=== PATIENT | female | born 1970 | race African-American/Black ===

== ENCOUNTER 2016-11-03 11:22 | Emergency (ER) | payer SELFPAY ==
[2016-11-03] MEDS ORDERED: IPRATROPIUM/ALBUTEROL 0.5-2.5 MG/3 ML AMPUL NEB ONE (11:47)
--- NOTE | 2016-11-03 11:47 | ER Document Report ---
ED Medical Screen (RME) - General Stated Complaint: COUGH Mode of Arrival: Ambulatory Information source: Patient Notes: Patient reports cough for the past 5 days with a fever as high as 101. Patient does report a previous history of pleurisy. hx: Frequent UTIs, currently on Cipro I have greeted and performed a rapid initial assessment of this patient. A comprehensive ED assessment and evaluation of the patient, analysis of test results and completion of the medical decision making process will be conducted by additional ED providers. TRAVEL OUTSIDE OF THE [place] IN LAST 30 DAYS: No - Related Data Allergies/Adverse Reactions: amoxicillin [Amoxicillin] Allergy (Verified 06/21/13 15:23) Past Medical History - Past Medical History Cardiac Medical History: Reports: Hx Hypercholesterolemia Pulmonary Medical History: Reports: Hx Pneumonia Past Surgical History: Reports: Hx Hysterectomy - Immunizations Hx Diphtheria, Pertussis, Tetanus Vaccination: Yes Physical Exam - Respiratory Respiratory status: No respiratory distress Breath sounds: Nonproductive cough, Rhonchi
--- NOTE | 2016-11-03 14:05 | ER Document Report ---
ED General - General Chief Complaint: Cough Stated Complaint: COUGH Mode of Arrival: Ambulatory Notes: 38-year-old female presents with complaints of sore throat of 2 week duration that improved for a few days and then went to her lungs. Patient notes productive cough with thick sputum as well as blood-tinged and chest wall pain. Patient admits to shortness of breath TRAVEL OUTSIDE OF THE [place] IN LAST 30 DAYS: No - HPI Onset: Other Onset/Duration: Persistent Quality of pain: Achy Severity: Mild Pain Level: 1 Associated symptoms: Body/muscle aches, Productive cough, Shortness of breath, Sore throat Exacerbated by: Coughing Relieved by: Denies Similar symptoms previously: No Recently seen / treated by doctor: No - Related Data Allergies/Adverse Reactions: amoxicillin [Amoxicillin] Allergy (Verified 11/03/16 11:47) Past Medical History - General Information source: Patient - Social History Smoking Status: Never Smoker Cigarette use (# per day): No Chew tobacco use (# tins/day): No Smoking Education Provided: No Frequency of alcohol use: None Drug Abuse: None Family History: Reviewed & Not Pertinent, DM Patient has suicidal ideation: No Patient has homicidal ideation: No - Past Medical History Cardiac Medical History: Reports: Hx Hypercholesterolemia Pulmonary Medical History: Reports: Hx Pneumonia Renal/ Medical History: Denies: Hx Peritoneal Dialysis Past Surgical History: Reports: Hx Hysterectomy - Immunizations Hx Diphtheria, Pertussis, Tetanus Vaccination: Yes Hx Pneumococcal Vaccination: 09/29/11 Review of Systems - Review of Systems Notes: REVIEW OF SYSTEMS: CONSTITUTIONAL : Admits fevers recent illness EENT: Admits her throat CARDIOVASCULAR: Admits to chest wall pain RESPIRATORY: adMiss productive cough GASTROINTESTINAL: Denies abdominal pain or distention. Denies nausea, vomiting , or diarrhea. Denies blood in vomitus, stools, or per rectum. Denies black, tarry stools. Denies constipation. GENITOURINARY: Denies difficulty urinating, painful urination, burning, frequency, blood in urine, or discharge. FEMALE GENITOURINARY: Denies vaginal bleeding, heavy or abnormal periods, irregular periods. Denies vaginal discharge or odor. MUSCULOSKELETAL: Denies back or neck pain or stiffness. Denies joint pain or swelling. SKIN: Denies rash, lesions or sores. HEMATOLOGIC : Denies easy bruising or bleeding. LYMPHATIC: Denies swollen, enlarged glands. NEUROLOGICAL: Denies confusion or altered mental status. Denies passing out or loss of consciousness. Denies dizziness or lightheadedness. Denies headache. Denies weakness or paralysis or loss of use of either side. Denies problems with gait or speech. Denies sensory loss, numbness, or tingling. Denies seizures. PSYCHIATRIC: Denies anxiety or stress. Denies depression, suicidal ideation, or homicidal ideation. ALL OTHER SYSTEMS REVIEWED AND NEGATIVE. Dictation was performed using [employer] voice recognition software PHYSICAL EXAMINATION: GENERAL: Well-appearing, well-nourished and in no acute distress. HEAD: Atraumatic, normocephalic. EYES: Pupils equal round and reactive to light, extraocular movements intact, conjunctiva are normal. ENT: Nares patent, oropharynx clear without exudates. Moist mucous membranes. NECK: Normal range of motion, supple without lymphadenopathy LUNGS: Breath sounds clear to auscultation bilaterally and equal. No wheezes rales or rhonchi. HEART: Regular rate and rhythm without murmurs ABDOMEN: Soft, nontender, nondistended abdomen. No guarding, no rebound. No masses appreciated. Female : deferred Musculoskeletal: Normal range of motion, no pitting or edema. No cyanosis. NEUROLOGICAL: Cranial nerves grossly intact. Normal speech, normal gait. Normal sensory, motor exams PSYCH: Normal mood, normal affect. SKIN: Warm, Dry, normal turgor, no rashes or lesions noted. Physical Exam - Vital signs Vitals: Temp Pulse Resp BP Pulse Ox 99.4 F 103 H 20 121/85 98 11/03/16 11:48 11/03/16 11:48 11/03/16 11:48 11/03/16 11:48 11/03/16 11:48 Course - Re-evaluation Re-evalutation: 11/03/16 14:06 Given patient's history of productive cough of 2 week duration I do believe antibiotics is appropriate this point, patient will be given steroids and inhaler antibiotics has been instructed on close return precautions patient's happy with this plan After performing a Medical Screening Examination, I estimate there is LOW risk for ACUTE CORONARY SYNDROME, RESPIRATORY FAILURE, SEPSIS OR MENINGITIS, thus I consider the discharge disposition reasonable. The patient and I have discussed the diagnosis and risks, and we agree with discharging home with close follow- up. We also discussed returning to the Emergency Department immediately if new or worsening symptoms occur. We have discussed the symptoms which are most concerning (e.g., changing or worsening pain, trouble swallowing or breathing, neck stiffness, fever) that necessitate immediate return. - Vital Signs Vital signs: Temp Pulse Resp BP Pulse Ox 99.4 F 103 H 18 121/85 98 11/03/16 11:48 11/03/16 11:48 11/03/16 12:42 11/03/16 11:48 11/03/16 11:48 - Diagnostic Test Radiology reviewed: Image reviewed, Reports reviewed - No acute abnormality Discharge - Discharge Clinical Impression: Sore throat, Productive cough Condition: Stable Disposition: HOME, SELF-CARE Instructions: Bronchitis With Bronchospasm (Wheezing) ([facility]) Additional Instructions: You have been given follow up instructions including low cost follow up with one of the local primary care offices. Follow up with them tomorrow for further care and reevaluation. Return immediately if symptoms worsen Prescriptions: Hydrocodone Bit/Homatropine [Hycodan Syrup 5-1.5 mg/5 ml Ud Cup] 5 ml PO Q4HP PRN #120 ml PRN Reason: Albuterol Sulfate [Proair HFA Inhalation Aerosol 8.5 gm MDI] 2 puff IH Q4H PRN # 1 mdi PRN Reason: Azithromycin 250 mg PO ASDIR PRN #6 tablet PRN Reason: Prednisone [Deltasone 20 mg Tablet] 3 tab PO DAILY 5 Days
[2016-11-03 14:07] VITALS: BP 114/61
== END 2016-11-03 14:13 | disposition home or self-care (01) ==
LOC: ER 11:22
DX: J02.9 Acute pharyngitis, unspecified (principal); R05 Cough; M79.1 Myalgia; R06.02 Shortness of breath; E78.00 Pure hypercholesterolemia, unspecified; Z88.0 Allergy status to penicillin; Z90.710 Acquired absence of both cervix and uterus
CPT/HCPCS: 94640; 99283; 71020; J7620

== ENCOUNTER 2017-12-20 13:02 | Emergency (ER) | payer MEDICAID ==
--- NOTE | 2017-12-20 13:38 | ER Document Report ---
ED Medical Screen (RME) - General Mode of Arrival: Ambulatory Information source: Patient TRAVEL OUTSIDE OF THE [place] IN LAST 30 DAYS: No - HPI Patient complains to provider of: Abdominal and bilateral flank pain Onset: Yesterday Associated Symptoms: Other - see notes above <KAREN STEPHEN - Last Filed: 12/20/17 13:50> <FREDERICKGUMERASHIDA - Last Filed: 12/20/17 18:08> - General Chief Complaint: Flank Pain Stated Complaint: LOW BACK PAIN, ABDOMINAL PAIN Time Seen by Provider: 12/20/17 13:31 Notes: 47-year-old female with history of frequent urinary tract infections, pleurisy, and hyperlipidemia presents to the ED complaining of severe abdominal and bilateral flank pain that is exacerbated with deep breathing and urination which started yesterday. Patient reports that she took Bactrim for a possible UTI, but has not helped. Patient describes the pain as sharp and constant. Patient additionally reports of a fever (101.9F). reports that he was recently diagnosed with H. pylori stomach ulcer and is concerned that the patient might have it as well. (KAREN STEPHEN) - Related Data Allergies/Adverse Reactions: amoxicillin [Amoxicillin] Allergy (Verified 12/20/17 13:07) Past Medical History - General Information source: Patient - Past Medical History Cardiac Medical History: Reports: Hx Hypercholesterolemia Pulmonary Medical History: Reports: Hx Pneumonia Renal/ Medical History: Reports: Other - Frequent UTIs. Denies: Hx Peritoneal Dialysis Past Surgical History: Reports: Hx Hysterectomy - Immunizations Hx Diphtheria, Pertussis, Tetanus Vaccination: Yes <KAREN STEPHEN - Last Filed: 12/20/17 13:50> Review of Systems - Review of Systems Constitutional: See HPI, Fever - 101.9F EENT: No symptoms reported Cardiovascular: No symptoms reported Respiratory: No symptoms reported Gastrointestinal: See HPI, Abdominal pain Genitourinary: See HPI, Burning, Flank pain - bilateral Female Genitourinary: No symptoms reported Musculoskeletal: No symptoms reported Skin: No symptoms reported Hematologic/Lymphatic: No symptoms reported Neurological/Psychological: No symptoms reported -: Yes All other systems reviewed and negative <KAREN STEPHEN - Last Filed: 12/20/17 13:50> Physical Exam - General General appearance: Alert - Respiratory Respiratory status: Other - Shallow respirations due to pain Breath sounds: Normal - Cardiovascular Rhythm: Regular Heart sounds: Normal auscultation - Back Back: CVA tenderness - bilaterally; Right greater than left - Skin Skin Temperature: Warm Skin Moisture: Dry Skin Color: Normal Skin irregularity: negative: Rash - No rashes noted to the back. <KAREN STEPHEN - Last Filed: 12/20/17 13:50> - Vital signs Vitals: Pulse Resp BP Pulse Ox 74 16 124/90 H 97 12/20/17 13:13 12/20/17 13:13 12/20/17 13:13 12/20/17 13:13 Course - Laboratory Result Diagrams: 12/20/17 14:00 12/20/17 14:00 <RASHIDA ZAVALA - Last Filed: 12/20/17 18:08> - Vital Signs Vital signs: Temp Pulse Resp BP Pulse Ox 74 16 124/90 H 97 12/20/17 13:13 12/20/17 13:13 12/20/17 13:13 12/20/17 13:13 - Laboratory Laboratory results interpreted by me: 12/20/17 12/20/17 12/20/17 14:00 14:00 14:00 RDW 14.4 H D-Dimer Glucose 115 H Urine Blood SMALL H 12/20/17 14:00 RDW D-Dimer 0.58 H Glucose Urine Blood Scribe Documentation - Scribe Written by Scribe:: Patti Foster, 12/20/2017 1354 acting as scribe for :: Amanda <KAREN STEPHEN - Last Filed: 12/20/17 13:50>
[2017-12-20] MEDS ORDERED: KETOROLAC TROMETHAMINE 60 MG/2 ML SDV IM ONE (13:39)
[2017-12-20] MEDS ORDERED: ONDANSETRON 4 MG TAB.RAPDIS PO ONE (13:39)
--- NOTE | 2017-12-20 14:38 | RADIOLOGY REPORT (SQ) ---
EXAM DESCRIPTION: CT LTD RENAL STONE PROTOCOL ON COMPLETED DATE/TIME: 12/20/2017 2:23 pm REASON FOR STUDY: right flank pain, dysuria COMPARISON: None. TECHNIQUE: CT scan of the abdomen and pelvis performed without intravenous or oral contrast. Images reviewed with lung, soft tissue, and bone windows. Reconstructed coronal and sagittal MPR images revi ewed. All images stored on PACS. All CT scanners at this facility use dose modulation, iterative reconstruction, and/or weight based d osing when appropriate to reduce radiation dose to as low as reasonably achievable (ALARA). [facility]: Dose Right [facility]: CareDose [facility]: Dose Right [facility]: Teradose 4D [facility]: Smart Aviacomm RADIATION DOSE: CT Rad equipment meets quality standard of care and radiation dose reduction techniq ues were employed. CTDIvol: 9.9 mGy. DLP: 559 mGy-cm.mGy. LIMITATIONS: None. FINDINGS: LOWER CHEST: Right basilar airspace disease atelectasis versus pneumonia NON-CONTRASTED LIVER, SPLEEN, ADRENALS: Evaluation limited by lack of IV contrast. No identified sign ificant masses. Low attenuation throughout the liver from fatty infiltration. PANCREAS: No masses. No peripancreatic inflammatory changes. GALLBLADDER: No identified stones by CT criteria. No inflammatory changes to suggest cholecystitis. RIGHT KIDNEY AND URETER: No suspicious masses. Assessment limited by lack of IV contrast. No signif icant calcifications. No hydronephrosis or hydroureter. LEFT KIDNEY AND URETER: No suspicious masses. Assessment limited by lack of IV contrast. No signifi cant calcifications. No hydronephrosis or hydroureter. AORTA AND RETROPERITONEUM: No aneurysm. No retroperitoneal masses or adenopathy. BOWEL AND PERITONEAL CAVITY: No obvious masses or inflammatory changes. No free fluid. APPENDIX: Normal. PELVIS, BLADDER, AND ABDOMINAL WALL:No abnormal masses. No free fluid. Bladder normal. Post hysterec shade. Unremarkable left ovary, 2.9 x 1.7 cm in size on axial image 75. On the right side, a [address] is present adjacent to the right proximal common iliac artery and vein likely an ovarian cyst. Th is is best shown on axial image 72 and coronal image 47 BONES: No significant findings. OTHER: No other significant finding. IMPRESSION: No CT evidence of obstructive urinary calculi, hydronephrosis, or hydroureter. Incidental finding of right basilar airspace disease COMMENT: Quality ID # [id number]: Final reports with documentation of one or more dose reduction techniques (e.g., Automated exposure control, adjustment of the mA and/or kV according to patient size, use of iterative reconstruction technique) TECHNICAL DOCUMENTATION: JOB ID: [id number] [employer]- All Rights Reserved Reading location - IP/workstation name: [email or web address]
[2017-12-20 14:58] LABS: ABSOLUTE EOSINOPHILS # (AUTO) 0.1 10^3/uL (0.0-0.6); ABSOLUTE LYMPHOCYTES (AUTO) 1.8 10^3/uL (0.5-4.7); ABSOLUTE MONOCYTES (AUTO) 0.8 10^3/uL (0.1-1.4); ABSOLUTE NEUT (AUTO) 4.6 10^3/uL (1.7-8.2); BASOPHILS % (AUTO) 0.3 % (0-2); EOSINOPHILS % (AUTO) 0.8 % (0-6); HEMATOCRIT 38.3 % (36.0-47.0); HEMOGLOBIN 12.7 g/dL (12.0-15.5); LYMPHOCYTES % (AUTO) 24.8 % (13-45); MEAN CORPUSCULAR HEMOGLOBIN 31.7 pg (27.0-33.4); MEAN CORPUSCULAR HGB CONC 33.2 g/dL (32.0-36.0); MEAN CORPUSCULAR VOLUME 96 fl (80-97); MONOCYTES % (AUTO) 10.4 % (3-13); PLATELET COUNT 201 10^3/uL (150-450); RED CELL DISTRIBUTION WIDTH 14.4 % (11.5-14.0); SEGMENTED NEUTROPHILS % (AUTO) 63.7 % (42-78); TOTAL CELLS COUNTED % (AUTO) 100 %; WHITE BLOOD COUNT 7.2 10^3/uL (4.0-10.5)
[2017-12-20] MEDS ORDERED: FENTANYL CITRATE INJ/PF 100 MCG/2 ML AMPUL IM ONE (14:59)
[2017-12-20] MEDS ORDERED: ALBUTEROL SULFATE 0.083% NEB 2.5 MG/3 ML AMPUL NEB ONE (15:00)
--- NOTE | 2017-12-20 15:01 | ER Document Report ---
ED General - General Chief Complaint: Flank Pain Stated Complaint: LOW BACK PAIN, ABDOMINAL PAIN Time Seen by Provider: 12/20/17 13:31 Mode of Arrival: Ambulatory Notes: 47-year-old -[place] female to the emergency department chief complaint of right flank pain/right lung pain. States that having some shortness of breath. Feels like she is going to pass out. Was diagnosed with pleurisy recently. Denies any fever, chills, sweats. TRAVEL OUTSIDE OF THE [place] IN LAST 30 DAYS: No - HPI Onset: This morning Onset/Duration: Sudden Pain Level: 2 Associated symptoms: Nausea, Shortness of breath - Related Data Allergies/Adverse Reactions: amoxicillin [Amoxicillin] Allergy (Verified 12/20/17 13:07) Past Medical History - General Information source: Patient - Social History Smoking Status: Never Smoker Family History: Reviewed & Not Pertinent, DM Patient has suicidal ideation: No Patient has homicidal ideation: No - Past Medical History Cardiac Medical History: Reports: Hx Hypercholesterolemia Pulmonary Medical History: Reports: Hx Pneumonia Renal/ Medical History: Reports: Other - Frequent UTIs. Denies: Hx Peritoneal Dialysis Past Surgical History: Reports: Hx Hysterectomy - Immunizations Hx Diphtheria, Pertussis, Tetanus Vaccination: Yes Hx Pneumococcal Vaccination: 09/29/11 Review of Systems - Review of Systems Constitutional: No symptoms reported EENT: No symptoms reported Cardiovascular: Chest pain. denies: Palpitations, Heart racing Respiratory: Hurts to breathe, Short of breath. denies: Wheezing Gastrointestinal: No symptoms reported, Abdominal pain, Nausea. denies: Diarrhea, Vomiting Genitourinary: No symptoms reported, Dysuria Female Genitourinary: No symptoms reported Musculoskeletal: No symptoms reported Skin: No symptoms reported Hematologic/Lymphatic: No symptoms reported Neurological/Psychological: No symptoms reported Physical Exam - Vital signs Vitals: Pulse Resp BP Pulse Ox 74 16 124/90 H 97 12/20/17 13:13 12/20/17 13:13 12/20/17 13:13 12/20/17 13:13 Interpretation: Normal - General General appearance: Appears well, Alert - HEENT Head: Normocephalic, Atraumatic Eyes: Normal Pupils: PERRL - Respiratory Respiratory status: No respiratory distress Chest status: Nontender Breath sounds: Normal Chest palpation: Normal - Cardiovascular Rhythm: Regular Heart sounds: Normal auscultation Murmur: No - Abdominal Inspection: Normal Distension: No distension Bowel sounds: Normal Tenderness: Nontender Organomegaly: No organomegaly - Back Back: Normal, Nontender - Extremities General upper extremity: Normal inspection, Nontender, Normal color, Normal ROM , Normal temperature General lower extremity: Normal inspection, Nontender, Normal color, Normal ROM , Normal temperature, Normal weight bearing. No: Leesa's sign - Neurological Neuro grossly intact: Yes Cognition: Normal Orientation: AAOx4 [place] Coma Scale Eye Opening: Spontaneous [place] Coma Scale Verbal: Oriented [place] Coma Scale Motor: Obeys Commands [place] Coma Scale Total: 15 Speech: Normal Motor strength normal: LUE, RUE, LLE, RLE Sensory: Normal - Psychological Associated symptoms: Normal affect, Normal mood - Skin Skin Temperature: Warm Skin Moisture: Dry Skin Color: Normal Course - Re-evaluation Re-evalutation: 12/20/17 20:42 Chest x-ray, CTA of the chest unremarkable. Labs unremarkable except for mildly elevated d-dimer. Patient feeling much better at this time. Uncertain etiology of patient's symptoms are better at this time find nothing further. Patient has been observed in the ER for 7 hours. Comfortable discharging. - Vital Signs Vital signs: Temp Pulse Resp BP Pulse Ox 97.6 F 73 16 106/61 98 12/20/17 19:32 12/20/17 19:32 12/20/17 19:32 12/20/17 19:32 12/20/17 19:32 - Laboratory Result Diagrams: 12/20/17 14:00 12/20/17 14:00 Laboratory results interpreted by me: 12/20/17 12/20/17 12/20/17 14:00 14:00 14:00 RDW 14.4 H D-Dimer Glucose 115 H Urine Blood SMALL H 12/20/17 14:00 RDW D-Dimer 0.58 H Glucose Urine Blood - EKG Interpretation by Me EKG shows normal: Sinus rhythm, [place], Intervals, QRS Complexes, ST-T Waves Discharge - Discharge Clinical Impression: Pleurisy, Flank pain, acute Condition: Good Disposition: HOME, SELF-CARE Instructions: Abdominal Pain ([facility]), Toradol Injection ([facility]), Pain Medication Injection ([facility]) Additional Instructions: In the event that symptoms get worse over the next 12-24 hours please return immediately for repeat evaluation. You may take anti-inflammatories of the prescription pain medication as given. Please follow-up with your regular doctor. Prescriptions: Ibuprofen [Motrin 800 mg Tablet] 800 mg PO Q8H PRN #30 tab PRN Reason:
[2017-12-20 15:02] LABS: APPEARANCE,URINE CLEAR; BILIRUBIN,URINE NEGATIVE (NEGATIVE); COLOR,URINE YELLOW; GLUCOSE, URINE NEGATIVE (NEGATIVE); KETONES,URINE NEGATIVE (NEGATIVE); LEUKOCYTE ESTERASE,URINE NEGATIVE (NEGATIVE); NITRITE,URINE NEGATIVE (NEGATIVE); PROTEIN,URINE NEGATIVE (NEGATIVE); URINE SPECIFIC GRAVITY 1.016; UROBILINOGEN,URINE NEGATIVE mg/dL (<2.0)
[2017-12-20 15:18] LABS: ALANINE AMINOTRANSFERASE 22 U/L (9-52); ALKALINE PHOSPHATASE 47 U/L (38-126); ANION GAP 10 (5-19); ASPARTATE AMINO TRANSFERASE 15 U/L (14-36); BILIRUBIN,DIRECT 0.1 mg/dL (0.0-0.4); BILIRUBIN,TOTAL 0.3 mg/dL (0.2-1.3); BLOOD UREA NITROGEN 12 mg/dL (7-20); CALCIUM 9.4 mg/dL (8.4-10.2); CARBON DIOXIDE 26 mmol/L (22-30); CHLORIDE 102 mmol/L (98-107); GLUCOSE 115 mg/dL (75-110); POTASSIUM 4.3 mmol/L (3.6-5.0); SODIUM 138.3 mmol/L (137-145); TOTAL PROTEIN 6.4 g/dL (6.3-8.2)
--- NOTE | 2017-12-20 16:06 | RADIOLOGY REPORT (SQ) ---
EXAM DESCRIPTION: CHEST SINGLE VIEW COMPLETED DATE/TIME: 12/20/2017 3:47 pm REASON FOR STUDY: sob,right chest pain COMPARISON: 11/03/2016 EXAM PARAMETERS: NUMBER OF VIEWS: One view. TECHNIQUE: Single frontal radiographic view of the chest acquired. RADIATION DOSE: NA LIMITATIONS: None. FINDINGS: LUNGS AND PLEURA: No new opacities, masses or pneumothorax. No pleural effusion. MEDIASTINUM AND HILAR STRUCTURES: No masses. Contour normal. HEART AND VASCULAR STRUCTURES: Heart stable in size. Normal vasculature. BONES: No acute findings. HARDWARE: None in the chest. OTHER: No other significant finding. IMPRESSION: NO ACUTE RADIOGRAPHIC FINDING IN THE CHEST. NO SIGNIFICANT CHANGE FROM PRIOR STUDY. TECHNICAL DOCUMENTATION: JOB ID: [id number] [employer]- All Rights Reserved Reading location - IP/workstation name: [email or web address]
--- NOTE | 2017-12-20 19:58 | RADIOLOGY REPORT (SQ) ---
EXAM DESCRIPTION: CTA CHEST COMPLETED DATE/TIME: 12/20/2017 7:21 pm REASON FOR STUDY: chest pain, sob, elevated ddimer COMPARISON: 07/25/2012 and 12/20/2017 TECHNIQUE: CT scan of the chest performed using helical scanning technique with dynamic intravenous contrast injection. Images reviewed with lung, soft tissue and bone windows. Reconstructed coronal and sagittal MPR images reviewed. Additional 3 dimensional post-processing performed to develop Maximal Intensity Projection images (CT P). All images stored on PACS. All CT scanners at this facility use dose modulation, iterative reconstruction, and/or weight based d osing when appropriate to reduce radiation dose to as low as reasonably achievable (ALARA). [facility]: Dose Right [facility]: CareDose [facility]: Dose Right [facility]: Teradose 4D [facility]: Kofax CONTRAST TYPE AND DOSE: contrast/concentration: Isovue 370.00 mg/ml; Total Contrast Delivered: 71.0 ml; Total Saline Delivered: 80.0 ml Contrast bolus optimized for the pulmonary arteries. Not diagnostic for the aorta. RENAL FUNCTION: BUN 12; creatinine 0.66 RADIATION DOSE: CT Rad equipment meets quality standard of care and radiation dose reduction techniq ues were employed. CTDIvol: 18.4 - 24.8 mGy. DLP: 659 mGy-cm. . LIMITATIONS: None. FINDINGS: LUNGS AND PLEURA: Scattered calcified granulomata. No focal consolidation. No pleural ef fusions. No pneumothorax. . AORTA AND GREAT VESSELS: No aneurysm. Contrast bolus not optimized for the aorta. HEART: No pericardial effusion. No significant coronary artery calcifications. PULMONARY ARTERIES: No emboli visualized in the main pulmonary arteries or the segmental branches. HILAR AND MEDIASTINAL STRUCTURES: No identified masses or abnormal nodes. HARDWARE: None in the chest. UPPER ABDOMEN: No significant findings. Limited exam. THYROID AND OTHER SOFT TISSUES: No masses. No adenopathy. BONES: No acute or significant finding. 3D MIPS: Confirm above findings. OTHER: No other significant finding. IMPRESSION: NORMAL CTA OF THE CHEST. NO PULMONARY EMBOLI. COMMENT: Quality ID # 436: Final reports with documentation of one or more dose reduction techniques (e.g., Automated exposure control, adjustment of the mA and/or kV according to patient size, use of iterative reconstruction technique) TECHNICAL DOCUMENTATION: JOB ID: [id number] [employer]- All Rights Reserved Reading location - IP/workstation name: [email or web address]
[2017-12-20] MEDS ORDERED: KETOROLAC TROMETHAMINE INJ/PF 30 MG/1 ML SDV IV ONE (20:42)
[2017-12-20] MEDS ORDERED: HYDROCODONE/ACETAMINOPHEN 5-325 MG (6 TAB/ER DISP) PO PRN (20:44)
[2017-12-20 21:22] VITALS: BP 129/72
--- NOTE | 2017-12-21 16:16 | EKG REPORT ---
SEVERITY:- NORMAL ECG - SINUS RHYTHM : Confirmed by: Tabby Velazquez 21-Dec-2017 16:16:08
== END 2017-12-20 21:10 | disposition home or self-care (01) ==
LOC: ER 13:02
DX: R09.1 Pleurisy (principal); R10.9 Unspecified abdominal pain; R07.1 Chest pain on breathing; R06.02 Shortness of breath; R11.0 Nausea; R79.1 Abnormal coagulation profile; Z88.0 Allergy status to penicillin; Z87.440 Personal history of urinary (tract) infections
CPT/HCPCS: 93005; 94640; 99285; 96372; 96374; 36415; 87086; 85025; 81025; 80053; 81001; 85379; 71045; 71275; 76380; 93010; J1885 ×2; S0119; J3010

== ENCOUNTER 2018-01-23 17:15 | Emergency (ER) | payer MEDICAID, MEDICARE ==
--- NOTE | 2018-01-23 18:47 | ER Document Report ---
ED General - General Information source: Patient TRAVEL OUTSIDE OF THE [place] IN LAST 30 DAYS: No <MORGAN MENJIVAR - Last Filed: 01/23/18 21:48> <LIZZIE KENDRICK - Last Filed: 01/23/18 22:24> - General Chief Complaint: Shortness Of Breath Stated Complaint: KNEE PAIN Time Seen by Provider: 01/23/18 18:27 Notes: 47 y.o female with a PMHx of arthritis presents to the ED with LT knee pain and SOB. Pt states that her knee has been swollen with pain for the past 4 days that extends into her calf and thigh. She states that she wrapped it yesterday to try to relieve the pain but was without any relief and reports hearing a "crunching" sound when moving her knee or baring weight. Pt also notes some SOB since yesterday. She states that she has had SOB in the past for when she had pleurisy but states that this is not similar in feeling. Pt states that she thinks she used to take blood thinners but was not sure what it was for. Pt has a PSHx of hysterectomy. She denies any recent surgeries. She denies being on any control. Pt reports taking Ibuprofen regularly. Pt denies any Hx of DM. Pt is a former smoker. She denies pollen allergies currently bothering her recently. Pt states that she usually is given Percocet when in the ED for pain in her knee. (MORGAN MENJIVAR) - Related Data Allergies/Adverse Reactions: amoxicillin [Amoxicillin] Allergy (Verified 12/20/17 13:07) Past Medical History - General Information source: Patient - Social History Smoking Status: Former Smoker Chew tobacco use (# tins/day): No Frequency of alcohol use: Occasional Drug Abuse: None Family History: Reviewed & Not Pertinent, DM Patient has suicidal ideation: No Patient has homicidal ideation: No - Past Medical History Cardiac Medical History: Reports: Hx Hypercholesterolemia Pulmonary Medical History: Reports: Hx Pneumonia Renal/ Medical History: Denies: Hx Peritoneal Dialysis Past Surgical History: Reports: Hx Hysterectomy - Immunizations Hx Diphtheria, Pertussis, Tetanus Vaccination: Yes Hx Pneumococcal Vaccination: 09/29/11 <MORGAN MENJIVAR - Last Filed: 01/23/18 21:48> Review of Systems - Review of Systems Constitutional: No symptoms reported EENT: No symptoms reported Cardiovascular: No symptoms reported Respiratory: See HPI, Short of breath Gastrointestinal: No symptoms reported Genitourinary: No symptoms reported Female Genitourinary: No symptoms reported Musculoskeletal: See HPI, Joint pain, Leg swelling Skin: No symptoms reported Hematologic/Lymphatic: No symptoms reported Neurological/Psychological: No symptoms reported -: Yes All other systems reviewed and negative <MORGAN MENJIVAR - Last Filed: 01/23/18 21:48> Physical Exam <MORGAN MENJIVAR - Last Filed: 01/23/18 21:48> <LIZZIE KENDRICK - Last Filed: 01/23/18 22:24> - Vital signs Vitals: Resp 16 01/23/18 15:31 - Notes Notes: GENERAL: Alert, interacts well. No acute distress. HEAD: Normocephalic, atraumatic. EYES: Pupils equal, round, and reactive to light. Extraocular movements intact. ENT: Oral mucosa moist, tongue midline. NECK: Full range of motion. Supple. Trachea midline. LUNGS: Clear to auscultation bilaterally, no wheezes, rales, or rhonchi. No respiratory distress. HEART: Regular rate and rhythm. No murmurs, gallops, or rubs. ABDOMEN: Soft, non-tender. Non-distended. Bowel sounds present in all 4 quadrants. No guarding, rebound, or rigidity. EXTREMITIES: Bilateral upper extremities and RT lower extremity full ROM. Diffuse LT knee tenderness to palpation. Tender to LT patella and LT posterior knee. Sensations intact throughout. radial and dorsalis pedis pulses 2/4 bilaterally. No cyanosis. Limited exam due to pain. NEUROLOGICAL: Alert and oriented x3. Normal speech. PSYCH: Normal affect, normal mood. SKIN: Warm, dry, normal turgor. No rashes or lesions noted. (MORGAN MENJIVAR) Course - Laboratory Result Diagrams: 01/23/18 18:52 01/23/18 18:52 <MORGAN MENJIVAR - Last Filed: 01/23/18 21:48> - Laboratory Result Diagrams: 01/23/18 18:52 01/23/18 18:52 - Diagnostic Test Radiology reviewed: Reports reviewed <LIZZIE KENDRICK - Last Filed: 01/23/18 22:24> - Re-evaluation Re-evalutation: 01/23/18 21:16 Patient presents with left knee pain and also pain in her left calf. Ultrasound Doppler is negative for DVT. Patient has an x-ray that is most likely consistent with tendinitis and a small joint effusion; however she will be referred to orthopedics for further evaluation. She will be placed in a knee immobilizer and given crutches. Patient will be discharged home with pain medication and muscle relaxant. She is agreeable to this plan. Return if any worsening or concerning symptoms. Lungs are clear. Vitals are stable. D- dimer is negative. Stable for discharge. (LIZZIE KENDRICK) - Vital Signs Vital signs: Temp Pulse Resp BP Pulse Ox 98.2 F 78 18 99/61 L 100 01/23/18 21:04 01/23/18 17:23 01/23/18 21:04 01/23/18 21:04 01/23/18 21:04 Procedures - Immobilization Left Knee Pre-Proc Neuro Vasc Exam: Normal Immobilizer type: Knee immobilizer Performed by: PCT Post-Proc Neuro Vasc Exam: Normal Alignment checked and good: No <LIZZIE KENDRICK - Last Filed: 01/23/18 22:24> Discharge <MORGAN MENJIVAR - Last Filed: 01/23/18 21:48> <LIZZIE KENDRICK - Last Filed: 01/23/18 22:24> - Discharge Clinical Impression: Injury of ligament of knee Qualifiers: Encounter type: initial encounter Laterality: left Qualified Code(s): S89.92XA - Unspecified injury of left lower leg, initial encounter Condition: Stable Disposition: HOME, SELF-CARE Instructions: Suspected Internal Knee Injury ([facility]), Knee Immobilizing Splint ( [facility]) Prescriptions: Cyclobenzaprine HCl [Flexeril 10 Mg Tablet] 10 mg PO TID #30 tablet Oxycodone HCl/Acetaminophen [Percocet 5-325 mg Tablet] 1 - 2 tab PO Q4H PRN #15 tablet PRN Reason: Forms: Return to Work Referrals: INGE SANTIZO MD [ACTIVE STAFF] - Follow up as needed Scribe Attestation: 01/23/18 22:24 I personally performed the services described in the documentation, reviewed and edited the documentation which was dictated to the scribe in my presence, and it accurately records my words and actions. (LIZZIE KENDRICK) Scribe Documentation - Scribe Written by Patti:: Patti Pollock [id number] 01/23/2018 acting as scribe for :: Cristiana <MORGAN MENJIVAR - Last Filed: 01/23/18 21:48>
[2018-01-23] MEDS ORDERED: OXYCODONE-ACETAMINOPHEN 5-325 MG TABLET PO ONE (18:54)
[2018-01-23 19:05] LABS: ABSOLUTE EOSINOPHILS # (AUTO) 0.1 10^3/uL (0.0-0.6); ABSOLUTE LYMPHOCYTES (AUTO) 2.3 10^3/uL (0.5-4.7); ABSOLUTE MONOCYTES (AUTO) 0.7 10^3/uL (0.1-1.4); ABSOLUTE NEUT (AUTO) 3.6 10^3/uL (1.7-8.2); BASOPHILS % (AUTO) 0.2 % (0-2); EOSINOPHILS % (AUTO) 1.3 % (0-6); HEMATOCRIT 36.6 % (36.0-47.0); HEMOGLOBIN 12.3 g/dL (12.0-15.5); LYMPHOCYTES % (AUTO) 33.7 % (13-45); MEAN CORPUSCULAR HGB CONC 33.6 g/dL (32.0-36.0); MEAN CORPUSCULAR VOLUME 95 fl (80-97); MONOCYTES % (AUTO) 10.6 % (3-13); PLATELET COUNT 202 10^3/uL (150-450); RED BLOOD COUNT 3.84 10^6/uL (3.72-5.28); RED CELL DISTRIBUTION WIDTH 13.8 % (11.5-14.0); SEGMENTED NEUTROPHILS % (AUTO) 54.2 % (42-78); TOTAL CELLS COUNTED % (AUTO) 100 %; WHITE BLOOD COUNT 6.7 10^3/uL (4.0-10.5)
[2018-01-23 19:09] LABS: INTERNATIONAL RATION (INR) 0.89; PROTHROMBIN TIME 12.5 SEC (11.4-15.4)
[2018-01-23 19:23] LABS: ALANINE AMINOTRANSFERASE 26 U/L (9-52); ALKALINE PHOSPHATASE 54 U/L (38-126); ANION GAP 13 (5-19); ASPARTATE AMINO TRANSFERASE 21 U/L (14-36); BILIRUBIN,DIRECT 0.3 mg/dL (0.0-0.4); BILIRUBIN,TOTAL 0.3 mg/dL (0.2-1.3); BLOOD UREA NITROGEN 15 mg/dL (7-20); CALCIUM 9.1 mg/dL (8.4-10.2); CARBON DIOXIDE 25 mmol/L (22-30); CHLORIDE 104 mmol/L (98-107); CREATINE KINASE 121 U/L (30-135); GLUCOSE 91 mg/dL (75-110); POTASSIUM 3.7 mmol/L (3.6-5.0); SODIUM 141.9 mmol/L (137-145); TOTAL PROTEIN 7.1 g/dL (6.3-8.2)
[2018-01-23 19:36] LABS: CREATINE KINASE MB 0.86 ng/mL (<4.55); TROPONIN I < 0.012 ng/mL
[2018-01-23] MEDS ORDERED: ONDANSETRON 4 MG TAB.RAPDIS PO ONE (19:50)
[2018-01-23] MEDS ORDERED: MORPHINE SULFATE 10 MG/ML INJ IM ONE (19:50)
--- NOTE | 2018-01-23 20:44 | RADIOLOGY REPORT (SQ) ---
EXAM DESCRIPTION: KNEE LEFT 4 VIEW COMPLETED DATE/TIME: 01/23/2018 8:27 pm REASON FOR STUDY: injury, pain COMPARISON: None. NUMBER OF VIEWS: Four views. TECHNIQUE: AP, lateral, and both oblique radiographic images acquired of the left knee. LIMITATIONS: None. FINDINGS: MINERALIZATION: Normal. BONES: No fracture identified. There is diffuse sclerotic appearance involving the distal femoral me tadiaphysis and lateral greater than medial femoral condyles. Enthesopathic change involving the sup erior inferior patella as well as the tibial tuberosity. JOINT: Small joint effusion. SOFT TISSUES: There is some increased density along the expected course of the patellar tendon. OTHER: No other significant finding. IMPRESSION: SMALL JOINT EFFUSION IDENTIFIED. NO DISCRETE FRACTURE. THERE IS INCREASED DENSITY SHANAE G THE EXPECTED COURSE OF THE PATELLAR TENDON IN THE SETTING OF ENTHESOPATHY COULD BE SECONDARY TO CHR ONIC TENDINOSIS HOWEVER ACUTE TENDON INJURY CANNOT BE EXCLUDED. CORRELATE WITH PHYSICAL EXAM AND MEC HANISM OF INJURY. DIFFUSE SCLEROSIS NOTED OF THE DISTAL FEMUR WHICH IS NONSPECIFIC AND COULD BE RELATED TO PAGET'S, A M ETABOLIC DISORDER, OR POTENTIALLY UNDERLYING MALIGNANCY. CORRELATE WITH PATIENT'S CLINICAL HISTORY, LABORATORY VALUES, AND CONSIDER FOLLOW-UP BONE SCAN. TECHNICAL DOCUMENTATION: JOB ID: [id number] [employer]- All Rights Reserved Reading location - IP/workstation name: [email or web address]
[2018-01-23 21:08] VITALS: BP 99/61
--- NOTE | 2018-01-23 21:16 | RADIOLOGY REPORT (SQ) ---
EXAM DESCRIPTION: VENOUS UNILATERAL LOWER COMPLETED DATE/TIME: 01/23/2018 8:58 pm REASON FOR STUDY: LOWER EXTREMITY PAIN LEFT COMPARISON: 07/25/2012 TECHNIQUE: Dynamic and static aguilar scale and color images acquired of the left leg venous system. Se lected spectral images acquired with additional compression and augmentation maneuvers. The contralat eral common femoral vein and saphenofemoral junction were also imaged. Images stored on PACS. LIMITATIONS: None. FINDINGS: COMMON FEMORAL: Normal phasicity, compression and augmentation. No visualized echogenic ma terial on aguilar scale. No defects on color images. FEMORAL: Normal compression and augmentation. No visualized echogenic material on aguilar scale. No defe cts on color images. POPLITEAL: Normal compression, augmentation. No visualized echogenic material on aguilar scale. No defec ts on color images. CALF VESSELS: Normal compression, augmentation. No visualized echogenic material on aguilar scale. No de fects on color images. GSV and SSV: Normal compression, augmentation. No visualized echogenic material on aguilar scale. No def ects on color images. ANY DEEP VENOUS INSUFFICIENCY: Not evaluated. ANY EVIDENCE OF POPLITEAL CYST: No. OTHER: No other significant finding. CONTRALATERAL COMMON FEMORAL VEIN AND SAPHENOFEMORAL JUNCTION: Normal phasicity, compression and augmentation. No visualized echogenic material on aguilar scale. No de fects on color images. IMPRESSION: NO EVIDENCE DVT OR SVT IN THE LEFT LEG. TECHNICAL DOCUMENTATION: JOB ID: [id number] [employer]- All Rights Reserved Reading location - IP/workstation name: [email or web address]
--- NOTE | 2018-01-24 08:22 | EKG REPORT ---
SEVERITY:- BORDERLINE ECG - SINUS RHYTHM NONSPECIFIC -T INVERSION IN V2 : Confirmed by: Scottie Street MD 24-Jan-2018 08:21:51
== END 2018-01-23 21:30 | disposition home or self-care (01) ==
LOC: ER 17:15
DX: S89.92XA Unspecified injury of left lower leg, initial encounter (principal); X58.XXXA Exposure to other specified factors, initial encounter; R06.02 Shortness of breath; M25.562 Pain in left knee; Z88.0 Allergy status to penicillin; Z87.891 Personal history of nicotine dependence; Z90.710 Acquired absence of both cervix and uterus
CPT/HCPCS: 93005; 99284; 96372; 36415; 82553; 82550; 84443; 85025; 85610; 80053; 84484; 85379; 93971; 73562; 93010; L1830; S0119; J2270

== ENCOUNTER 2019-03-29 18:40 | Emergency (ER) | payer MEDICARE, MEDICAID ==
[2019-03-29 18:54] VITALS: BP 129/74
[2019-03-29] MEDS ORDERED: ONDANSETRON HCL INJ/PF 4 MG/2 ML SDV IV ONE (19:55)
[2019-03-29] MEDS ORDERED: KETOROLAC TROMETHAMINE INJ/PF 30 MG/1 ML SDV IV ONE (19:55)
--- NOTE | 2019-03-29 19:57 | ER Document Report ---
ED Medical Screen (RME) - General Chief Complaint: Flank Pain Stated Complaint: FLANK PAIN Time Seen by Provider: 03/29/19 19:53 Primary Care Provider: XANDER HEWITT MD [Primary Care Provider] - Follow up as needed Mode of Arrival: Ambulatory Information source: Patient Notes: Patient presents complaining of left flank pain that radiates around to the left side of abdomen for the past 3 days. Patient states pain occasionally varies in intensity. Patient does report nausea with occasional dizziness. Patient denies any fever. Patient states she is currently being treated for UTI. Patient was initially placed on Cipro and then changed to Macrobid. I have greeted and performed a rapid initial assessment of this patient. A comprehensive ED assessment and evaluation of the patient, analysis of test results and completion of the medical decision making process will be conducted by additional ED providers. TRAVEL OUTSIDE OF THE [place] IN LAST 30 DAYS: No - Related Data Allergies/Adverse Reactions: amoxicillin [Amoxicillin] Allergy (Verified 03/29/19 18:41) Past Medical History - Social History Chew tobacco use (# tins/day): No Frequency of alcohol use: None Drug Abuse: None - Past Medical History Cardiac Medical History: Reports: Hx Hypercholesterolemia Pulmonary Medical History: Reports: Hx Pneumonia Renal/ Medical History: Denies: Hx Peritoneal Dialysis Past Surgical History: Reports: Hx Hysterectomy - Immunizations Hx Diphtheria, Pertussis, Tetanus Vaccination: Yes Physical Exam - Vital signs Vitals: Temp Pulse Resp BP Pulse Ox 98.6 F 68 18 129/74 H 96 03/29/19 18:52 03/29/19 18:52 03/29/19 18:52 03/29/19 18:52 03/29/19 18:52 - Back Back: CVA tenderness - Left flank Course - Vital Signs Vital signs: Temp Pulse Resp BP Pulse Ox 98.6 F 68 18 129/74 H 96 03/29/19 18:52 03/29/19 18:52 03/29/19 18:52 03/29/19 18:52 03/29/19 18:52 Doctor's Discharge - Discharge Referrals: XANDER HEWITT MD [Primary Care Provider] - Follow up as needed
[2019-03-29 20:56] LABS: ABSOLUTE BASOPHILS # (AUTO) 0.1 10^3/uL (0.0-0.2); ABSOLUTE EOSINOPHILS # (AUTO) 0.1 10^3/uL (0.0-0.6); ABSOLUTE LYMPHOCYTES (AUTO) 2.1 10^3/uL (0.5-4.7); ABSOLUTE MONOCYTES (AUTO) 0.5 10^3/uL (0.1-1.4); ABSOLUTE NEUT (AUTO) 2.9 10^3/uL (1.7-8.2); BASOPHILS % (AUTO) 2.1 % (0-2); EOSINOPHILS % (AUTO) 1.3 % (0-6); HEMATOCRIT 36.9 % (36.0-47.0); HEMOGLOBIN 12.3 g/dL (12.0-15.5); LYMPHOCYTES % (AUTO) 36.7 % (13-45); MEAN CORPUSCULAR HEMOGLOBIN 31.7 pg (27.0-33.4); MEAN CORPUSCULAR HGB CONC 33.3 g/dL (32.0-36.0); MEAN CORPUSCULAR VOLUME 95 fl (80-97); MONOCYTES % (AUTO) 8.4 % (3-13); PLATELET COUNT 211 10^3/uL (150-450); RED BLOOD COUNT 3.87 10^6/uL (3.72-5.28); RED CELL DISTRIBUTION WIDTH 14.2 % (11.5-14.0); SEGMENTED NEUTROPHILS % (AUTO) 51.5 % (42-78); TOTAL CELLS COUNTED % (AUTO) 100 %; WHITE BLOOD COUNT 5.7 10^3/uL (4.0-10.5)
--- NOTE | 2019-03-29 21:11 | RADIOLOGY REPORT (SQ) ---
EXAM DESCRIPTION: [facility]: CT ABDOMEN PELVIS WITHOUT IV CONTRAST CLINICAL HISTORY: 48 years Female; L flank pain TECHNIQUE: CT of the abdomen and pelvis without contrast. All CT scans at this facility use dose modulation, iterative reconstruction, and/or weight based dosing when appropriate to reduce radiation dose to as low as reasonably achievable. COMPARISON: CT 12/20/2017 FINDINGS: Abdomen: Liver: 5 mm hypodensity in segment 4A is unchanged, likely a small cyst. Liver is otherwise unremarkable. No ductal distention. Gallbladder:Nondistended Pancreas:Within normal limits Spleen:Within normal limits Right kidney:No hydronephrosis. No renal or ureteral calculi. Left kidney:No hydronephrosis. No renal or ureteral calculi. Adrenal glands:Within normal limits Vascular structures: Mild scattered calcific plaque in the aorta, unchanged. No aneurysm. Pelvis: Small bowel:No significant distention. Appendix:Within normal limits Colon: Several diverticula in the proximal colon. No acute pericolonic edema. No distention. No free intraperitoneal fluid or air. Bones: Degenerative facet arthropathy in the lower lumbar spine. No acute bone findings. Bladder: Unremarkable. No pelvic mass or adenopathy. Note that evaluation of the bowel and solid organs is somewhat limited due to lack of intravenous and oral contrast. IMPRESSION: 1. No acute findings 2. No renal or ureteral calculi 3. Several colonic diverticula, but no evidence for acute diverticulitis 4. Lower lumbar facet arthropathy.
[2019-03-29 21:14] LABS: ALANINE AMINOTRANSFERASE 23 U/L (9-52); ALBUMIN 4.2 g/dL (3.5-5.0); ALKALINE PHOSPHATASE 54 U/L (38-126); ANION GAP 7 (5-19); ASPARTATE AMINO TRANSFERASE 25 U/L (14-36); BILIRUBIN,DIRECT 0.3 mg/dL (0.0-0.4); BILIRUBIN,TOTAL 0.3 mg/dL (0.2-1.3); BLOOD UREA NITROGEN 17 mg/dL (7-20); CALCIUM 9.1 mg/dL (8.4-10.2); CARBON DIOXIDE 27 mmol/L (22-30); CHLORIDE 106 mmol/L (98-107); GLUCOSE 139 mg/dL (75-110); POTASSIUM 3.7 mmol/L (3.6-5.0); SODIUM 140.1 mmol/L (137-145); TOTAL PROTEIN 7.4 g/dL (6.3-8.2)
[2019-03-29 22:18] LABS: APPEARANCE,URINE SLIGHTLY-CLOUDY; BILIRUBIN,URINE NEGATIVE (NEGATIVE); COLOR,URINE YELLOW; GLUCOSE, URINE NEGATIVE (NEGATIVE); KETONES,URINE NEGATIVE (NEGATIVE); LEUKOCYTE ESTERASE,URINE NEGATIVE (NEGATIVE); NITRITE,URINE NEGATIVE (NEGATIVE); PROTEIN,URINE NEGATIVE (NEGATIVE); URINE SPECIFIC GRAVITY 1.021; UROBILINOGEN,URINE NEGATIVE mg/dL (<2.0)
== END 2019-03-30 00:35 | disposition left against medical advice (07) ==
LOC: ER 18:40
DX: R10.9 Unspecified abdominal pain (principal); R11.0 Nausea; R42 Dizziness and giddiness; Z88.0 Allergy status to penicillin; E78.00 Pure hypercholesterolemia, unspecified; Z90.710 Acquired absence of both cervix and uterus
CPT/HCPCS: 99281; 96374; 96375; 36415; 87086; 85025; 87088; 80053; 81001; 87186; 74176; J1885; J2405

== ENCOUNTER 2019-04-20 18:11 | Emergency (ER) | payer MEDICAID ==
[2019-04-20 21:55] LABS: ABSOLUTE EOSINOPHILS # (AUTO) 0.1 10^3/uL (0.0-0.6); ABSOLUTE LYMPHOCYTES (AUTO) 2.4 10^3/uL (0.5-4.7); ABSOLUTE MONOCYTES (AUTO) 0.5 10^3/uL (0.1-1.4); BASOPHILS % (AUTO) 0.2 % (0-2); EOSINOPHILS % (AUTO) 0.9 % (0-6); HEMATOCRIT 39.6 % (36.0-47.0); HEMOGLOBIN 13.1 g/dL (12.0-15.5); LYMPHOCYTES % (AUTO) 40.9 % (13-45); MEAN CORPUSCULAR HEMOGLOBIN 31.8 pg (27.0-33.4); MEAN CORPUSCULAR VOLUME 96 fl (80-97); MONOCYTES % (AUTO) 7.7 % (3-13); PLATELET COUNT 187 10^3/uL (150-450); RED BLOOD COUNT 4.11 10^6/uL (3.72-5.28); RED CELL DISTRIBUTION WIDTH 14.3 % (11.5-14.0); SEGMENTED NEUTROPHILS % (AUTO) 50.3 % (42-78); TOTAL CELLS COUNTED % (AUTO) 100 %; WHITE BLOOD COUNT 5.9 10^3/uL (4.0-10.5)
[2019-04-20 22:14] LABS: ALANINE AMINOTRANSFERASE 16 U/L (9-52); ALBUMIN 4.4 g/dL (3.5-5.0); ALKALINE PHOSPHATASE 63 U/L (38-126); ANION GAP 11 (5-19); ASPARTATE AMINO TRANSFERASE 18 U/L (14-36); BILIRUBIN,DIRECT 0.2 mg/dL (0.0-0.4); BILIRUBIN,TOTAL 0.3 mg/dL (0.2-1.3); BLOOD UREA NITROGEN 16 mg/dL (7-20); CALCIUM 9.4 mg/dL (8.4-10.2); CARBON DIOXIDE 24 mmol/L (22-30); CHLORIDE 105 mmol/L (98-107); GLUCOSE 165 mg/dL (75-110); POTASSIUM 3.7 mmol/L (3.6-5.0); TOTAL PROTEIN 7.4 g/dL (6.3-8.2)
[2019-04-20 22:16] LABS: APPEARANCE,URINE CLEAR; BILIRUBIN,URINE NEGATIVE (NEGATIVE); COLOR,URINE YELLOW; GLUCOSE, URINE NEGATIVE (NEGATIVE); KETONES,URINE TRACE mg/dL (NEGATIVE); LEUKOCYTE ESTERASE,URINE NEGATIVE (NEGATIVE); NITRITE,URINE NEGATIVE (NEGATIVE); PROTEIN,URINE NEGATIVE (NEGATIVE); URINE SPECIFIC GRAVITY 1.026; UROBILINOGEN,URINE NEGATIVE mg/dL (<2.0)
[2019-04-20] MEDS ORDERED: KETOROLAC TROMETHAMINE INJ/PF 30 MG/1 ML SDV IV ONE (22:44)
--- NOTE | 2019-04-20 23:41 | ER Document Report ---
ED General - General Chief Complaint: Flank Pain Stated Complaint: FLANK PAIN Time Seen by Provider: 04/20/19 23:39 Primary Care Provider: XANDER HEWITT MD [ACTIVE STAFF] - Follow up in 3-5 days LINDA STALLWORTH MD [ASSOCIATE] - Follow up in 3-5 days (orthopedic spinal surgey ) ALESSANDRO WHYTE MD [ACTIVE STAFF] - Follow up in 3-5 days (pain managment clinic ) Notes: Patient is a 48-year-old female with history of degenerative disc disease that presents to the emergency department for chief complaint of left back pain. Patient states she has been having back pain for about 2 months, she thought was a urinary tract infection, was treated with Cipro and Macrobid over that period of time, over the last 2 to 3 weeks has been having pain in her back, some worse with movements, she had associated nausea but no vomiting. She thought was related to her kidney so she came to the emergency department. She has a history of degenerative disc disease, she states the pain radiates down her left leg, but does not go past the knee. She states it hurts to walk, and at times when she is changing positions in bed, she has more pain. She currently rates her pain as a 9 out of 10 describes as a constant aching and occasionally sharp sensation in her low back on the left side. She denies any bowel incontinence, denies any urinary retention, saddle anesthesia or paresthesia. She denies any numbness or tingling in her lower extremities at this time. Past Medical History: Degenerative disc disease Past Surgical History: Hysterectomy Social History: Denies tobacco, alcohol or drug use. Family History: Reviewed and noncontributory for presenting illness Allergies: Reviewed, see documented allergy list. REVIEW OF SYSTEMS: Other than noted above, the 12 point review of systems was reviewed with the patient and were negative, all pertinent findings are included in the HPI. PHYSICAL EXAMINATION: Vital signs reviewed, nursing noted reviewed. GENERAL: Patient appears to be in pain, but in no immediate distress. HEAD: Atraumatic, normocephalic. EYES: Eyes appear normal, extraocular movements intact, sclera anicteric, conjunctiva are normal. ENT: nares patent, oropharynx clear without exudates. Moist mucous membranes. NECK: Normal range of motion, supple without lymphadenopathy LUNGS: Breath sounds clear to auscultation bilaterally and equal. No wheezes rales or rhonchi. HEART: Regular rate and rhythm without murmurs ABDOMEN: Soft, nontender, normoactive bowel sounds. No rebound, guarding, or rigidity. No masses appreciated. Back: Patient has paraspinal tenderness the lumbar spine on the left, no midline tenderness, step-off or deformity of the lumbar or thoracic spine. There is no right-sided paraspinal tenderness. The patient does have positive straight leg raising on the left, negative on the right. EXTREMITIES: Nontender, good range of motion, no pitting or edema. NEUROLOGICAL: No focal neurological deficits. Moves all extremities spontaneously Motor and sensory grossly intact on exam. +5/5 strength distally in the lower extremities, and dorsiflexion, plantar flexion and extension of the hallucis longus tendon. Normal Babinski's, and intact patellar and Achilles tendon reflexes bilaterally and equal. PSYCH: Normal mood, normal affect. SKIN: Warm, Dry, normal turgor, no rashes or lesions noted on exposed skin TRAVEL OUTSIDE OF THE [place] IN LAST 30 DAYS: No - Related Data Allergies/Adverse Reactions: amoxicillin [Amoxicillin] Allergy (Verified 04/20/19 18:12) Past Medical History - Social History Smoking Status: Never Smoker Family History: Reviewed & Not Pertinent, DM - Past Medical History Cardiac Medical History: Reports: Hx Hypercholesterolemia Pulmonary Medical History: Reports: Hx Pneumonia Renal/ Medical History: Denies: Hx Peritoneal Dialysis Past Surgical History: Reports: Hx Hysterectomy - Immunizations Hx Diphtheria, Pertussis, Tetanus Vaccination: Yes Hx Pneumococcal Vaccination: 09/29/11 Physical Exam - Vital signs Vitals: Temp Pulse Resp BP Pulse Ox 97.2 F 60 20 131/72 H 100 04/20/19 18:15 04/20/19 18:15 04/20/19 18:15 04/20/19 18:15 04/20/19 18:15 Course - Re-evaluation Re-evalutation: Patient seen and examined vital signs reviewed. Laboratory data and/or imaging were ordered as appropriate for the patient's presenting symptoms and complaint, with consideration of any critical or life threatening conditions that may be associated with their obtained history and exam as noted above. Patient was treated with IM Toradol, and morphine, she is also given Lidoderm patch, p.o. Robaxin and prednisone. Results were reviewed when available and demonstrated negative UA, and blood work was unremarkable as well The patient was re-evaluated and was stable and improved Evaluation was most consistent with lumbar radiculopathy/sciatica, patient's pain was most consistent with this, as opposed to any renal etiology such as kidney stones, she had no hematuria, and her blood work and urinalysis was otherwise unremarkable, her clinical exam is most consistent with sciatica versus lumbar radiculopathy. Advised prednisone, muscle relaxer, anti- inflammatories and advised follow-up with orthopedic spine, and pain management. Results were discussed with the patient at this point, after careful consideration I feel that that patient can be discharged from the emergency department, the patient was educated treatments and reasons to return to the emergency department based on their presumed diagnosis as noted above, they were advised to followup with a primary care physician in 2-3 days. Patient was agreeable to plan of care. *Note is created using voice recognition software and may contain spelling, syntax or grammatical errors. Laboratory 04/20/19 04/20/19 04/20/19 21:22 21:31 21:31 WBC 5.9 RBC 4.11 Hgb 13.1 Hct 39.6 MCV 96 MCH 31.8 MCHC 33.0 RDW 14.3 H Plt Count 187 Seg Neutrophils % 50.3 Lymphocytes % 40.9 Monocytes % 7.7 Eosinophils % 0.9 Basophils % 0.2 Absolute Neutrophils 3.0 Absolute Lymphocytes 2.4 Absolute Monocytes 0.5 Absolute Eosinophils 0.1 Absolute Basophils 0.0 Sodium 140.4 Potassium 3.7 Chloride 105 Carbon Dioxide 24 Anion Gap 11 BUN 16 Creatinine 0.70 Est GFR ( Amer) > 60 Est GFR (Non-Af Amer) > 60 Glucose 165 H Calcium 9.4 Total Bilirubin 0.3 Direct Bilirubin 0.2 Neonat Total Bilirubin Not Reportable Neonat Direct Bilirubin Not Reportable Neonat Indirect Bili Not Reportable AST 18 ALT 16 Alkaline Phosphatase 63 Total Protein 7.4 Albumin 4.4 Lipase 99.3 Urine Color YELLOW Urine Appearance CLEAR Urine pH 6.0 Ur Specific Garner 1.026 Urine Protein NEGATIVE Urine Glucose (UA) NEGATIVE Urine Ketones TRACE H Urine Blood NEGATIVE Urine Nitrite NEGATIVE Urine Bilirubin NEGATIVE Urine Urobilinogen NEGATIVE Ur Leukocyte Esterase NEGATIVE Urine WBC (Auto) 7 Urine RBC (Auto) 7 Squamous Epi Cells Auto 4 Urine Mucus (Auto) RARE Urine Ascorbic Acid NEGATIVE - Vital Signs Vital signs: Temp Pulse Resp BP Pulse Ox 97.2 F 60 20 131/72 H 100 04/20/19 18:15 04/20/19 18:15 04/20/19 18:15 04/20/19 18:15 04/20/19 18:15 - Laboratory Result Diagrams: 04/20/19 21:31 04/20/19 21:31 Laboratory results interpreted by me: 04/20/19 04/20/19 04/20/19 21:22 21:31 21:31 RDW 14.3 H Glucose 165 H Urine Ketones TRACE H Discharge - Discharge Clinical Impression: Low back pain Qualifiers: Chronicity: chronic Back pain laterality: left Sciatica presence: with sciatica Sciatica laterality: sciatica of left side Qualified Code(s): M54.42 - Lumbago with sciatica, left side Condition: Stable Disposition: HOME, SELF-CARE Instructions: Sciatica ([facility]) Additional Instructions: Please take all medications as prescribed, and please follow-up with the primary care physician, as well as pain management and possibly orthopedic spinal surgery, you may benefit from physical therapy, but the medications, in particular the steroid/prednisone, will benefit you the most to help improve your pain and other symptoms. Prescriptions: Methocarbamol [Robaxin 750 mg Tablet] 750 mg PO TID PRN #30 tablet PRN Reason: back pain Prednisone 50 mg PO DAILY #20 tablet Tramadol HCl [Ultram] 50 mg PO Q8H PRN #12 tablet PRN Reason: back pain Referrals: XANDER HEWITT MD [ACTIVE STAFF] - Follow up in 3-5 days LINDA STALLWORTH MD [ASSOCIATE] - Follow up in 3-5 days (orthopedic spinal surgey ) ALESSANDRO WHYTE MD [ACTIVE STAFF] - Follow up in 3-5 days (pain managment clinic )
[2019-04-20] MEDS ORDERED: MORPHINE SULFATE 10 MG/ML INJ IM ONE (23:49)
[2019-04-20] MEDS ORDERED: METHOCARBAMOL 750 MG TABLET PO ONE (23:49)
[2019-04-20] MEDS ORDERED: LIDOCAINE 5% (700 MG) TRANSDERMAL ADH..PATCH TP ONE (23:50)
[2019-04-20] MEDS ORDERED: PREDNISONE 20 MG TABLET PO ONE (23:50)
[2019-04-21] MEDS ORDERED: LIDOCAINE 5% (700 MG) TRANSDERMAL ADH..PATCH ONE (01:16)
[2019-04-21 01:50] VITALS: BP 122/73
== END 2019-04-21 01:50 | disposition home or self-care (01) ==
LOC: ER 18:11
DX: M54.42 Lumbago with sciatica, left side (principal); G89.29 Other chronic pain; R11.0 Nausea; Z88.0 Allergy status to penicillin
CPT/HCPCS: 99284; 96372; 96374; 36415; 83690; 85025; 80053; 81001; J3490 ×2; J1885; J2270; J7512

== ENCOUNTER 2019-08-13 18:44 | Emergency (ER) | payer OTHER ==
[2019-08-13] MEDS ORDERED: ONDANSETRON HCL INJ/PF 4 MG/2 ML SDV IV ONE (19:24)
[2019-08-13] MEDS ORDERED: MORPHINE SULFATE 10 MG/ML INJ IV ONE (19:24)
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
[2019-08-13 19:49] LABS: ABSOLUTE BASOPHILS # (AUTO) 0.1 10^3/uL (0.0-0.2); ABSOLUTE EOSINOPHILS # (AUTO) 0.1 10^3/uL (0.0-0.6); ABSOLUTE LYMPHOCYTES (AUTO) 2.6 10^3/uL (0.5-4.7); ABSOLUTE MONOCYTES (AUTO) 0.6 10^3/uL (0.1-1.4); ABSOLUTE NEUT (AUTO) 2.7 10^3/uL (1.7-8.2); BASOPHILS % (AUTO) 1.1 % (0-2); HEMATOCRIT 39.3 % (36.0-47.0); LYMPHOCYTES % (AUTO) 43.6 % (13-45); MEAN CORPUSCULAR HEMOGLOBIN 31.8 pg (27.0-33.4); MEAN CORPUSCULAR HGB CONC 33.2 g/dL (32.0-36.0); MEAN CORPUSCULAR VOLUME 96 fl (80-97); MONOCYTES % (AUTO) 9.6 % (3-13); PLATELET COUNT 186 10^3/uL (150-450); RED CELL DISTRIBUTION WIDTH 13.7 % (11.5-14.0); SEGMENTED NEUTROPHILS % (AUTO) 44.7 % (42-78); TOTAL CELLS COUNTED % (AUTO) 100 %; WHITE BLOOD COUNT 6.1 10^3/uL (4.0-10.5)
[2019-08-13 20:07] LABS: ALBUMIN 4.2 g/dL (3.5-5.0); ALKALINE PHOSPHATASE 66 U/L (38-126); ANION GAP 9 (5-19); ASPARTATE AMINO TRANSFERASE 22 U/L (14-36); BILIRUBIN,DIRECT 0.1 mg/dL (0.0-0.4); BILIRUBIN,TOTAL 0.3 mg/dL (0.2-1.3); BLOOD UREA NITROGEN 13 mg/dL (7-20); CALCIUM 9.5 mg/dL (8.4-10.2); CARBON DIOXIDE 24 mmol/L (22-30); CHLORIDE 108 mmol/L (98-107); CREATINE KINASE 84 U/L (30-135); GLUCOSE 89 mg/dL (75-110); POTASSIUM 3.6 mmol/L (3.6-5.0); TOTAL PROTEIN 7.6 g/dL (6.3-8.2)
[2019-08-13 20:20] LABS: CREATINE KINASE MB 0.42 ng/mL (<4.55); TROPONIN I < 0.012 ng/mL
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
[2019-08-13] MEDS ORDERED: HYDROCODONE/ACETAMINOPHEN 5-325 MG (6 TAB/ER DISP) PO PRN (21:25)
[2019-08-13 22:24] VITALS: BP 145/86
--- NOTE | 2019-08-14 11:35 | EKG REPORT ---
SEVERITY:- BORDERLINE ECG - SINUS RHYTHM PROBABLE LEFT ATRIAL ABNORMALITY : Confirmed by: Erendira Cardenas MD 14-Aug-2019 11:34:53
== END 2019-08-13 22:23 | disposition home or self-care (01) ==
LOC: ER 18:44
DX: S52.002A Unspecified fracture of upper end of left ulna, initial encounter for closed fracture (principal); S02.2XXA Fracture of nasal bones, initial encounter for closed fracture; S00.83XA Contusion of other part of head, initial encounter; R51 Headache; M54.2 Cervicalgia; R07.9 Chest pain, unspecified; R10.9 Unspecified abdominal pain; R10.816 Epigastric abdominal tenderness; V43.52XA Car driver injured in collision with other type car in traffic accident, initial encounter; M47.9 Spondylosis, unspecified; Z79.899 Other long term (current) drug therapy; Z88.0 Allergy status to penicillin
CPT/HCPCS: 93005; 36415; 82553; 82550; 85025; 80053; 84484; 73080; 73060; 73030; 70450; 71260; 72125; 74177; 93010; 29105; J2270; J2405; 99284

== ENCOUNTER 2019-09-29 16:02 | Emergency (ER) | payer MEDICAID, MEDICARE ==
[2019-09-29 16:08] VITALS: BP 145/84
[2019-09-29] MEDS ORDERED: KETOROLAC TROMETHAMINE 60 MG/2 ML SDV IM ONE (16:33)
--- NOTE | 2019-09-29 16:34 | ER Document Report ---
HPI - HPI Time Seen by Provider: 09/29/19 16:28 Notes: Patient is a 24-year-old female who presents to the ED complaining of nasal congestion/discharge, dry nonproductive cough, fever, body ache, occ mild TEE 1 day. Patient states that she is still eating and drinking without difficulties, but does have a decreased p.o. intake. She is still urinating normally having normal bowel movements. Patient has been using some [id number] meds for symptoms. She denies any significant past medical history including cardiopulmonary history and immunocompromised conditions. Pt also would like her urine checked for possible UTI x1 day. Denies any current current headache, neck pain, sore throat, chest pain, palpitations, syncope, shortness of breath, wheeze, dyspnea, abdominal pain, nausea/vomiting/diarrhea, urinary retention, hematuria, or rash. - ROS Systems Reviewed and Negative: Yes All other systems reviewed and negative - REPRODUCTIVE Reproductive: DENIES: : Past Medical History - Social History Smoking Status: Unknown if Ever Smoked Family History: Reviewed & Not Pertinent, DM - Past Medical History Cardiac Medical History: Reports: Hx Hypercholesterolemia Pulmonary Medical History: Reports: Hx Pneumonia Renal/ Medical History: Denies: Hx Peritoneal Dialysis Past Surgical History: Reports: Hx Hysterectomy - Immunizations Hx Diphtheria, Pertussis, Tetanus Vaccination: Yes Hx Pneumococcal Vaccination: 09/29/11 Vertical Provider Document - CONSTITUTIONAL Agree With Documented VS: Yes Notes: PHYSICAL EXAMINATION: GENERAL: Well-appearing, well-nourished and in no acute distress. A&Ox4. Answers questions appropriately. Moves comfortably w/o notable distress HEAD: Atraumatic, normocephalic. EYES: Pupils equal round and reactive to light, extraocular movements intact, sclera anicteric, conjunctiva are normal. ENT: EAC clear b/l. TM's intact b/l without erythema, fluid, or perforation. Nares patent and with clear discharge. oropharynx no erythema without exudates. No tonsilar hypertrophy without erythema or exudate. No palatine shift. Uvula midline. No tongue protrusion. No drooling, hoarseness, or airway compromise. Moist mucous membranes. No sinus tenderness. NECK: Normal range of motion, supple without lymphadenopathy. No rigidity/meningismus. LUNGS: Breath sounds clear to auscultation bilaterally and equal. No wheezes rales or rhonchi. No retractions HEART: Regular rate and rhythm without murmurs, rubs, gallops. ABDOMEN: Soft, nontender, nondistended abdomen. No guarding, no rebound. Normal bowel sounds present. No CVA tenderness bilaterally. NEUROLOGICAL: Normal speech, normal gait. PSYCH: Normal mood, normal affect. SKIN: Warm, Dry, normal turgor, no rashes or lesions noted. - INFECTION CONTROL TRAVEL OUTSIDE OF THE [place] IN LAST 30 DAYS: No Course - Re-evaluation Re-evalutation: 09/29/19 16:33 Patient is an afebrile, well-hydrated, 49-year-old female who presents to the ED with influenza and acute UTI. Vitals are acceptable. PE is otherwise unremarkable. CXR negative. Influenza B +. See UA. UC pending. No other labs or imaging warranted at this time based on H&P. Patient has no significant cardiopulmonary or immunocompromised medical conditions. Patient's lungs are clear to auscultation bilaterally without tachycardia, hypoxia, or tachypnea. Patient is tolerating p.o. without any difficulties. Thoroughly reviewed the risks, benefits, potential side effects, estimated cost without insurance with patient. After thorough review, patient requested Tamiflu at this time. Low suspicion for any meningitis, sepsis, peritonsillar/pharyngeal abscess, respiratory compromise, severe dehydration, or other emergent systemic condition at this time. Patient is aware this condition can change from initial presentation and she needs to monitor symptoms closely. Conservative measures otherwise for symptoms. Recheck with your PCM in 3-5 days. Return to the ED with any worsening/concerning symptoms otherwise as reviewed in discharge. Patient is in agreement. swelling with PCN's. - Vital Signs Vital signs: Temp Pulse Resp BP Pulse Ox 99.8 F 94 18 145/84 H 95 09/29/19 16:06 09/29/19 16:06 09/29/19 16:06 09/29/19 16:06 09/29/19 16:06 Discharge - Discharge Clinical Impression: Influenza, Acute UTI (urinary tract infection) Condition: Stable Disposition: HOME, SELF-CARE Instructions: Upper Respiratory Illness ([facility]) Additional Instructions: Maintain adequate fluid intake tylenol/ibuprofen as needed alternating every 3 hours for fever/body ache over the counter cold medication as needed for symptoms Humidified air may help Wash your hands regularly Wear a mask when coughing F/u: with your PCM in 2-3 days for a recheck Return to the ED with any fever, altered mental status/behavior, chest pain, palpitations, syncope, headache, neck pain/stiffness, shortness of breath, chest pains, wheezing, drooling, trouble swallowing/breathing, abdominal pain, n/v/d, rash, or worsening/concerning symptoms otherwise. Prescriptions: Codeine Phosphate/Guaifenesin [Cheratussin Ac Syrup] 10 ml PO QID #200 ml Nitrofurantoin/Nitrofuran Mac [Macrobid 100 mg Capsule] 1 tab PO BID #20 capsule Oseltamivir Phosphate [Tamiflu 75 mg Capsule] 75 mg PO BID #10 capsule Forms: Elevated Blood Pressure Referrals: SANTIAGO COLÓN MD [Primary Care Provider] - 10/01/19
--- NOTE | 2019-09-29 17:21 | RADIOLOGY REPORT (SQ) ---
EXAM DESCRIPTION: CHEST 2 VIEWS COMPLETED DATE/TIME: 09/29/2019 4:43 pm REASON FOR STUDY: cough COMPARISON: 11/03/2016 TECHNIQUE: Frontal and lateral radiographic views of the chest acquired. NUMBER OF VIEWS: Two view. LIMITATIONS: None. FINDINGS: LUNGS AND PLEURA: Tiny stable nodules consistent with previous granulomatous disease or ol d viral infection. No acute infiltrate. No suspicious or developing opacities. No pneumothorax. MEDIASTINUM AND HILAR STRUCTURES: No masses or contour abnormalities. HEART AND VASCULAR STRUCTURES: Heart normal size. No evidence for failure. BONES: No acute findings. HARDWARE: None in the chest. OTHER: No other significant finding. IMPRESSION: No acute cardiopulmonary changes. TECHNICAL DOCUMENTATION: JOB ID: [id number] [employer]- All Rights Reserved Reading location - IP/workstation name: [email or web address]
[2019-09-29 17:31] LABS: A TYPE INFLUENZA AG NEGATIVE (NEGATIVE); B INFLUENZA AG POSITIVE (NEGATIVE)
[2019-09-29 17:50] LABS: APPEARANCE,URINE SLIGHTLY-CLOUDY; BILIRUBIN,URINE NEGATIVE (NEGATIVE); COLOR,URINE YELLOW; GLUCOSE, URINE NEGATIVE (NEGATIVE); KETONES,URINE NEGATIVE (NEGATIVE); LEUKOCYTE ESTERASE,URINE NEGATIVE (NEGATIVE); NITRITE,URINE POSITIVE (NEGATIVE); PROTEIN,URINE NEGATIVE (NEGATIVE); URINE SPECIFIC GRAVITY 1.016; UROBILINOGEN,URINE NEGATIVE mg/dL (<2.0)
== END 2019-09-29 18:15 | disposition home or self-care (01) ==
LOC: ER 16:02
DX: J11.1 Influenza due to unidentified influenza virus with other respiratory manifestations (principal); N39.0 Urinary tract infection, site not specified; E78.00 Pure hypercholesterolemia, unspecified; Z90.710 Acquired absence of both cervix and uterus
CPT/HCPCS: 99283; 96372; 87086; 87088; 81001; 87186; 87804; 71046; J1885

== ENCOUNTER 2019-12-18 15:28 | Emergency (ER) | payer SELFPAY ==
--- NOTE | 2019-12-18 15:47 | ER Document Report ---
ED General - General Stated Complaint: ETOH Time Seen by Provider: 12/18/19 15:32 Primary Care Provider: SANTIAGO COLÓN MD [Primary Care Provider] - Follow up as needed Notes: HPI: 49-year-old female that presents today with EMS after the boyfriend called EMS secondary to the patient drinking excessive amount of alcohol was somnolent sleeping. EMS states they provided 2 mg of Narcan and the patient did awake. They stated initially the patient's breathing was shallow. Patient does admit to drinking a lot of alcohol today secondary to the stress of the current circulating virus. 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 Patient states she has multiple family members in [facility]. Patient adamantly denies any and all suicidal homicidal ideations, auditory visual hallucinations. Patient denies any runny nose, congestion, cough, or fevers. She denies using any narcotics or heroin. ROS: See HPI All other review of systems reviewed and otherwise negative Reviewed vital signs and nursing note as charted by RN. PHYSICAL EXAM: CONSTITUTIONAL: Alert and oriented; she does appear to be intoxicated but is answering all questions appropriately HEAD: Normocephalic; atraumatic EYES: PERRL; full extraocular range of motion with no nystagmus; sclerae clear ENT: Normal nose; no rhinorrhea; moist mucous membranes; pharynx without lesions noted NECK: Supple without meningismus; non-tender; no cervical lymphadenopathy, no masses CARD: Regular rate and rhythm; no murmurs; symmetric distal pulses RESP: Normal chest excursion without splinting or tachypnea; breath sounds clear and equal bilaterally; no wheezes, no rhonchi, no rales ABD/GI: Normal bowel sounds; non-distended; soft, non-tender; no palpable organomegaly or masses BACK: The back appears normal and is non-tender to palpation EXT: Normal ROM in all joints; non-tender to palpation; no edema SKIN: No acute lesions noted NEURO: CN 2-12 intact; 5/5 bilateral upper and lower extremity strength with sensation intact to light touch PSYCH: Slightly tearful in affect TRAVEL OUTSIDE OF THE [place] IN LAST 30 DAYS: No - Related Data Allergies/Adverse Reactions: amoxicillin [Amoxicillin] Allergy (Verified 09/29/19 16:28) Past Medical History - Social History Smoking Status: Unknown if Ever Smoked Family History: Reviewed & Not Pertinent, DM - Past Medical History Cardiac Medical History: Reports: Hx Hypercholesterolemia Pulmonary Medical History: Reports: Hx Pneumonia Renal/ Medical History: Denies: Hx Peritoneal Dialysis Past Surgical History: Reports: Hx Hysterectomy - Immunizations Hx Diphtheria, Pertussis, Tetanus Vaccination: Yes Hx Pneumococcal Vaccination: 09/29/11 Course - Re-evaluation Re-evalutation: 12/18/19 15:46 Given the above history and physical we will obtain basic labs, blood alcohol level, urine drug screen to evaluate for any opiates, and reassess. Vital signs as recorded. Patient is in no acute distress. Patient adamantly denies any suicidal homicidal ideations. She denies any previous history of suicide attempts. I do not detect any psychiatric history reviewing patient's previous visits here. 12/18/19 16:15 Patient is adamantly denying wanting or needing any treatment. She would not allow us to draw blood or put the pulse oximetry on her finger. Patient knows the year, month, date, location, president, and answers all questions appropriately. She adamantly denies any drug use. I have called her sister with the patient's permission and she understands that the patient would like to leave. She has tried to convince the patient to stay for evaluation but the patient has now refused. We also attempted to call the patient's boyfriend that she has lived with for the last 35 years who initially called EMS. This was with the patient's consent. He did not answer the phone. Patient would like to leave. She believes that we will be holding her against her will if we make her stay any longer. Patient is answering all questions appropriately. We walked the patient and she appears to have gait stability. She understands the risks of recurrence of respiratory depression if she does have opiates in her system but the possibility of permanent disability or . 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 I do not believe we are able to hold her against her will given the patient's history and physical currently. Patient is willing to sign AGAINST MEDICAL ADVICE. Discharge - Discharge Clinical Impression: Alcohol abuse Altered mental status Qualifiers: Altered mental status type: unspecified Qualified Code(s): R41.82 - Altered mental status, unspecified Condition: Fair Disposition: AGAINST MEDICAL ADVICE Additional Instructions: Come back immediately with any fevers, vomiting, diarrhea, change in mental status, cough or shortness of breath, or any other acute problems. Please make sure that she follow-up with the primary care physician as we have discussed. Return at any time that you would like for further evaluation and treatment. Referrals: SANTIAGO COLÓN MD [Primary Care Provider] - Follow up as needed
== END 2019-12-18 16:44 | disposition left against medical advice (07) ==
LOC: ER 15:28
DX: F10.10 Alcohol abuse, uncomplicated (principal); R40.0 Somnolence; Z53.29 Procedure and treatment not carried out because of patient's decision for other reasons; Z88.0 Allergy status to penicillin
CPT/HCPCS: 99284